=== PATIENT | female | born 1990 | race Caucasian/White ===

== ENCOUNTER 2017-05-01 16:33 | Emergency (ER) | payer BC ==
--- NOTE | 2017-05-06 09:50 | NUR ---
Received SAD person referral. Pt was [facility]'d to [facility].
--- NOTE | 2017-05-08 15:59 | ER ---
ADMIT: 05/01/2017 RM/LOC: ER [facility] MR#: [id number] [address] [id number] STEPHEN MARQUEZ [address] [place] [address] CELL Emergency Room Report SEX: F AGE: 26 : 1990 DATE: 05/01/2017 ADDENDUM: This patient comes to the ER because she took a handful of ibuprofen 200 mg. She thinks there was between 15 and 20 mg that she took. She stated that she wanted to attempt suicide because her wants to leave her. She denies any pain. No vomiting or diarrhea. States she feels normal. She was given activated charcoal. I did do EPC labs on her which were normal. The police EPC'd her to [facility]. I spoke with Dr. Wylie, who is receiving physician. The patient was transferred by police. Please see my T-sheet. ROBERT Quintanilla / Andres Medrano MD / nicky JOB #: [id number] CC: Andres Medrano MD, Attending Physician Cristel Jeong MD, Family Physician
== END 2017-05-01 20:40 | disposition short-term general hospital (02) ==
LOC: ER 16:33
DX: T39.312A Poisoning by propionic acid derivatives, intentional self-harm, initial encounter (principal)